=== PATIENT | male | born 1965 | race African-American/Black ===

== ENCOUNTER 2017-01-26 09:05 | Emergency (ER) | payer OTHER ==
--- NOTE | ~2017-01-26 | US85 ---
[facility] A Service of [facility] RADIOLOGY TEXT RESULTS PATIENT: LONNY ALVAREZ LOCATION: [place] : 63 UNIT #: [id number] AGE: [address]: Misael Reynolds MD SEX: M ORDER DR: [id number] [facility] [address]. [place], [place] [address] [id number] E MR#: [id number] Acc #: [id number] NAME: LONNY ALVAREZ : 1965 SEX: M STUDY DATE/TIME: 01/26/2017 9:45 UNIT: [facility] ROOM: STUDY DESCRIPTION: [facility] [employer] Attending Physician: Misael Reynolds M.D. Ordering Physician: Misael Reynolds M.D. Primary Care Physician: No Primary Care Physician MEDICAL IMAGING REPORT This report is preliminary unless electronic signature is present EXAM Left lower extremity venous Doppler. INDICATIONS Left leg pain for 4 days. Patient has a history of DVT four years ago. The patient is currently on Coumadin. TECHNIQUE Lugo-scale color Doppler and spectral Doppler waveform analysis was performed through the left lower extremity. FINDINGS The patient's common femoral, deep femoral, superficial femoral, popliteal, anterior tibial, posterior tibial, peroneal and saphenous veins were all patent and compressible. Flow within the left popliteal vein does appear somewhat slow but again no thrombus is seen. IMPRESSION No evidence of DVT or SVT within the left lower extremity. Patient does have somewhat slow flow within the left popliteal vein but again there is no evidence of thrombus. Dictated by... Angie Hankins M.D. THIS IS AN ELECTRONICALLY VERIFIED REPORT Angie Hankins M.D. at 01/27/2017 12:22 PM AFF/ea TD: 01/26/2017 12:15 [facility] A Service of [facility] RADIOLOGY TEXT RESULTS PATIENT: LONNY ALVAREZ LOCATION: [place] : 63 UNIT #: [id number] AGE: [address]: Misael Reynolds MD SEX: M ORDER DR: JOB #: [id number] MEDICAL IMAGING REPORT Page 1 of 1 COPY
[~2017-01-26 09:05] MED LIST: DOXYCYCLINE HY100 M1 PO; FLAGYL PO
[2017-01-26 09:33] LABS: BASOPHIL# 0.1 X10e3 (0-0.3); BASOPHIL% 0.7 % (0-2.5); EOSINOPHIL# 0.3 X10e3 (0-0.7); EOSINOPHIL% 3.9 % (0.0-7.0); HEMATOCRIT 42.5 % (38.0-50.0); HEMOGLOBIN 13.9 gm/dL (13.0-16.0); LYMPHOCYTE# 3.2 X10e3 (1.0-3.5); LYMPHOCYTE% 42.5 % (17.0-45.0); MEAN CELL VOLUME 90.7 FL (83-96); MEAN CORPUSCULAR HEMOGLOBIN 29.6 PG (28-34); MEAN CORPUSCULAR HGB CONC 32.6 g/dL (30-36); MEAN PLATELET VOLUME 6.7 FL (6.5-11.5); MONOCYTE# 0.5 X10e3 (0-1.0); MONOCYTE% 6.7 % (3.0-12.0); NEUTROPHIL# 3.5 X10e3 (1.5-7.1); NEUTROPHIL% 46.2 % (40-75); PLATELET COUNT 279 X10e3 (140-420); RED BLOOD COUNT 4.69 X10e (3.90-5.60); RED CELL DISTRIBUTION WIDTH 14.5 % (11.0-15.5); WHITE BLOOD COUNT 7.6 X10e3 (4.0-10.5)
[2017-01-26 09:40] LABS: DIFF IND NO
[2017-01-26 09:48] LABS: INR 4.3
[2017-01-26 10:04] LABS: BUN/CREATININE RATIO 5.45; CALCIUM SERUM 9.7 mg/dL (8.4-10.2); CREATININE SERUM 1.1 mg/dL (0.6-1.4); POTASSIUM 3.8 mmol/L (3.5-5.1)
[2017-01-26 10:14] LABS: PROTHROMBIN TIME (PATIENT) 47.2 SECONDS (9.6-11.5)
== END 2017-01-26 11:15 | disposition home or self-care (01) ==
LOC: CED 09:05
PROVIDERS: Emergency Medicine
DX: M79.652 Pain in left thigh (principal); I10 Essential (primary) hypertension
CPT/HCPCS: 36415; 80048; 80178; 85025; 85610; 93971; 99284